=== PATIENT | male | born 1995 | race Caucasian/White ===

== ENCOUNTER 2021-05-28 06:38 | Outpatient (CLI) | payer BC ==
[~2021-05-28] VITALS: Ht 182.9 cm; Wt 102.8 kg
[2021-05-30] MEDS ORDERED: INSU100I14 SQ (13:35)
[2021-05-30] MEDS ORDERED: INSU100I29 SQ (13:35)
[2021-05-30] MEDS ORDERED: TRAZ-227 PO (13:35)
[2021-05-30] MEDS ORDERED: CITA40TA13 PO (13:35)
== END 2021-05-30 14:04 | disposition home or self-care (01) ==
LOC: PREOP 06:38
PROVIDERS: ATTEND Surgery
DX: Z01.818 Encounter for other preprocedural examination (principal)

== ENCOUNTER 2021-06-05 10:10 | Day surgery (SDC) | payer BC ==
[~2021-06-05] VITALS: Ht 183 cm; Wt 102.8 kg
[~2021-06-05 10:10] MED LIST: CITA40TA13 PO; INSU100I14 SQ; INSU100I29 SQ; TRAZ-227 PO
[2021-06-05] MEDS ORDERED: LACTATED RINGERS 1,000 ML IV ONE (10:12)
[2021-06-05] MEDS ORDERED: LACTATED RINGERS 1,000 ML IV STA (10:13)
[2021-06-05 10:20] VITALS: BP 132/78
[2021-06-05] MEDS ORDERED: MIDAZOLAM 2 MG/2 ML (VERSED) VIAL ONE (10:42)
[2021-06-05] MEDS ORDERED: PROPOFOL INJECTION 50 ML IV ONE (10:42)
--- NOTE | 2021-06-05 10:42 | Progress Note-Pre Operative ---
Pre-Operative Progress Note H&P Reviewed The H&P was reviewed, patient examined and no changes noted. Date Seen by Provider: Jun 05, 2021 Time Seen by Provider: 10:41 Date H&P Reviewed: Jun 05, 2021 Time H&P Reviewed: 10:41 Pre-Operative Diagnosis: rectal bleeding VASHTI LUTHER DO Jun 05, 2021 10:42
--- NOTE | 2021-06-05 11:09 | Progress Note-Post Operative ---
Post-Operative Progess Note Surgeon (s)/[employer] Bi Developer (s) Surgeon VASHTI LUTHER DO [employer] Bi Developer: na Pre-Operative Diagnosis rectal bleeding Post-Operative Diagnosis internal hemorrhoids Procedure & Operative Findings Date of Procedure 06/05/21 Procedure Performed/Findings colonoscopy Anesthesia Type per air/ocean export clerk Estimated Blood Loss Estimated blood loss (mL): none Specimens/Packing Specimens Removed none VASHTI LUTHER DO Jun 05, 2021 11:09
[2021-06-05 11:10] VITALS: BP 99/52
--- NOTE | 2021-06-05 11:10 | Discharge Inst-Simple/Standard ---
Discharge Inst-Standard Patient Instructions/Follow Up Plan of Care/Instructions/FU: Any return of bleeding be seen at that time with Dr. Waldron. Activity as Tolerated: Yes Discharge Diet: Regular Diet (high fiber diet.) VASHTI WALDRON DO Jun 05, 2021 11:10
[2021-06-05 11:15] VITALS: BP 101/50
[2021-06-05 11:20] VITALS: BP 101/50
[2021-06-05 11:40] VITALS: BP 98/68
[2021-06-05 11:50] VITALS: BP 98/68
--- NOTE | 2021-06-05 15:39 | OPERATIVE REPORT ---
DATE OF SERVICE: 06/05/2021 PREOPERATIVE DIAGNOSIS: Rectal bleeding. POSTOPERATIVE DIAGNOSIS: Internal hemorrhoids. PROCEDURE: Colonoscopy. SURGEON: Vashti Waldron DO ANESTHESIA: Per BIOINFORMATICS RESEARCH TECHNICIAN. ESTIMATED BLOOD LOSS: None. COMPLICATIONS: None. INDICATIONS: The patient is a 26-year-old male who has been having some rectal bleeding. He understands risks and benefits of procedure and wished to proceed. Consent was signed in the chart. DESCRIPTION OF PROCEDURE: The patient was taken to the endoscopy suite, placed in left lateral recumbent position. Timeout was performed. Digital rectal exam was performed noting some internal hemorrhoids. No palpable polyps, masses or ulcerations. Scope was inserted in the rectum, advanced all the way to the cecum with minimal difficulty. Prep was adequate. Scope was slowly retracted back. No polyps, masses or ulcerations in the cecum, ascending, transverse, descending and sigmoid colon. Once in the rectum, scope was retroflexed noting no other pathology except for some slight internal hemorrhoids. Scope was returned to its normal position, slowly withdrawn until completely removed. The patient tolerated the procedure well without any complications, taken to recovery room in stable condition. RECOMMENDATIONS: The patient recommended high fiber diet. We would recommend keeping the stool soft and no straining. The patient will need repeat colonoscopy per screening guidelines. If he has any return of bleeding, he should be reevaluated at that time and consider repeat endoscopy. Job ID: [id number] DocumentID: [id number] Dictated Date: 06/05/2021 11:12:40 Billet Cutter Date: 06/05/2021 15:38:17 Dictated By: VASHTI WALDRON DO
== END 2021-06-05 11:50 | disposition home or self-care (01) ==
LOC: ENDO 10:10
PROVIDERS: ATTEND Surgery
DX: K64.8 Other hemorrhoids (principal); E11.9 Type 2 diabetes mellitus without complications; F32.A Depression, unspecified; F41.9 Anxiety disorder, unspecified; Z79.4 Long term (current) use of insulin; Z79.899 Other long term (current) drug therapy